=== PATIENT | female | born 1970 | race Two or more races ===

== ENCOUNTER 2024-03-11 08:59 | Outpatient (AMB) | payer OTHER, SELFPAY ==
--- NOTE | 2024-03-11 09:03 | AM.OFFWIN_ITS ---
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 She had a fall about 1 month ago onto that shoulder, and since then, she has had intermittent pain, sw elling, and right hand numbness. She had an XR of shoulder while living in [facility] and reports being told it was normal. She denies any neck pain. Denies any arm or hand weakness. She recently moved here and does not have a PCP. Her daughter has offered her Tylenol however patient does not like to take medication. She also reports feeling cold all the time. This has been for several months. She has not been able to get established with a PCP since moving here from [facility]. Denies any fevers, chills, dizziness. [facility] Social History Patient Tobacco Use Status: Never used Tobacco Review of Systems Const All systems reviewed & are unremarkable except as noted in HPI and below Physical Exam Vital Signs: Last Vital Signs Pulse 87 03/11/24 09:25 BP 128/80 03/11/24 09:25 Pulse Ox 98 03/11/24 09:25 Oxygen Delivery Method Room Air 03/11/24 09:25 BMI result Body Mass Index 25.2 Const General: cooperative, healthy appearing and no acute distress Nutritional Appearance: average body habitus HEENT Head: Yes normal to inspection Neck Neck: Yes normal visual inspection and Yes no lymphadenopathy Resp Effort & Inspection: normal respiratory effort Auscultation: clear to auscultation bilaterally Cardio Rate: regular rate Rhythm: regular rhythm Back/Spine/Pelvis Cervical Spine: cervical ROM normal (negative spurlings) Skin General skin exam: no rashes or lesions noted Neuro General: gait normal, Normal light touch and pain sensation and deep tendon reflexes 2+ bilaterally Motor exam (neuro): 5/5 motor strength present throughout and Abnormal motor strength present bilateral upper extremity Extrem General: Yes capillary refill normal and Yes no clubbing, cyanosis or edema Right upper extremity: shoulder/upper arm Details: normal to inspection and normal ROM Psych Appearance: grossly normal Mental Status: mental status grossly normal Speech and movement: Normal speech and movement present Assessment & Plan Assessment & Plan (1) Right shoulder pain: Code(s): M25.511 - Pain in right shoulder Qualifiers: Chronicity: acute Qualified Code(s): M25.511 - Pain in right shoulder Plan: Patient reports right shoulder pain and intermittent right hand numbness. On exam, her right shoulder has excellent/full ROM without pain. She does not have any AC tenderness to palpation. Cervical assessment is normal and Spurlings is negative. Her hand and arm strength is equal and strong. I obtained an XR which was normal. Patient and daughter notified in the office. I have suggested she take a course of NSAIDS for about 1 week (patient states she has Motrin at home and will take this). She will return to [place] next week if symptoms persist. She may benefit from a course of PT, however wishes to hold off on this for now. I encouraged she call around to local PCP offices to see if she can make a new patient appointment with a provider. She agrees to this. (2) Sensation of feeling cold: Code(s): R68.89 - Other general symptoms and signs Plan: She unfortunately has not been able to get established with a PCP yet since moving [place] the [place] I am going to order a CBC and TSH at this time and will f/u with her next week. Orders: Orders Complete Blood Count Auto Diff Today R68.89 - Other general symptoms and signs TSH reflex Free T4 Today R68.89 - Other general symptoms and signs XR shoulder RT min 2V Today M25.511 - Pain in right shoulder Coding Level of Care Code Est Pt Level 4 (95288) Diagnoses Acute pain of right shoulder M25.511 Chronicity: acute Sensation of feeling cold R68.89
[2024-03-11 09:25] VITALS: BP 128/80; PULSE 87; O2SAT 98; BMI 25.2
== END 2024-03-11 10:14 | disposition home or self-care (01) ==
PROVIDERS: Visit Provider Nurse Practitioner Family
DX: M25.511 Pain in right shoulder (principal); R68.89 Other general symptoms and signs
CPT/HCPCS: 99214

== ENCOUNTER 2024-03-11 09:48 | Outpatient (REF) | payer OTHER, SELFPAY ==
--- NOTE | ~2024-03-11 | XR_ITS ---
EXAMINATION: XR SHOULDER, RIGHT CLINICAL INFORMATION: Right shoulder radiating pain COMPARISON: None available. TECHNIQUE: AP external rotation, Grashey, scapular Y views of the right shoulder. FINDINGS: The bones and soft tissues are normal. No fracture. Glenohumeral and acromioclavicular alignment is anatomic with normal joint space. No abnormal soft tissue calcifications. XR/XR shoulder RT min 2V IMPRESSION: Unremarkable plain radiographs of the right shoulder.
[2024-03-11 13:30] LABS: MANUAL DIFF FLAG NO
[2024-03-11 13:46] LABS: Basophils Percent Auto 0.4 % (0-2); Eosinophils Absolute Auto 0.1 X10*3/uL (0.0-0.4); Eosinophils Percent Auto 1.4 % (0-4); Hematocrit 40.3 % (37.0-47.0); Hemoglobin 12.3 g/dl (12.0-16.0); Imm Gran Abs Auto 0.01 X10*3/uL (0.00-0.03); Imm Gran Pct Auto 0.2 % (0.0-0.4); Lymphocytes Absolute Auto 1.9 X10*3/uL (1.2-4.9); Lymphocytes Percent Auto 34.4 % (20-40); Mean Corpuscular HGB Conc 30.5 g/dl (31.0-35.0); Mean Corpuscular Hemoglobin 22.8 pg (27.0-33.0); Mean Corpuscular Volume 74.6 fL (80.0-98.0); Mean Platelet Volume 10.4 fL (9.4-12.3); Monocytes Absolute Auto 0.3 X10*3/uL (0.1-1.2); Monocytes Percent Auto 5.9 % (2-11); Neutrophils Absolute Auto 3.2 x10*3/uL (2.0-8.3); Neutrophils Percent Auto 57.7 % (45-73); Platelet Count 289 X10*3/uL (160-400); Red Cell Distribution Width 14.6 % (11.0-16.0); White Blood Count 5.6 X10*3/uL (4.8-10.8)
[2024-03-11 14:11] LABS: TSH reflex Free T4 2.28 uIU/mL (0.32-4.0)
== END 2024-03-11 09:49 | disposition home or self-care (01) ==
LOC: HO.HMGCX 09:48
PROVIDERS: Visit Provider Nurse Practitioner Family
DX: M25.511 Pain in right shoulder (principal); R68.89 Other general symptoms and signs
CPT/HCPCS: 36415; 73030; 84443; 85025